=== PATIENT | male | born 1995 | race Caucasian/White ===

== ENCOUNTER 2019-05-06 18:01 | Outpatient (CLI) | payer BC ==
[2019-05-06] MEDS ORDERED: GADOBUTROL 10 MMOL/10 ML VIAL ONE (18:38)
[2019-05-06] MEDS ORDERED: GADOBUTROL 10 MMOL/10 ML VIAL IVP ONE (18:49)
--- NOTE | 2019-05-07 16:20 | MRI Report ---
Reason: SCROTAL PAIN, MIRGAINE HEADACHE W/AURA MENINGIOMA Procedure Date: 05/06/2019 Accession Number: [id number] / [id number] Procedure: MRI - Brain W/WO CPT Code: FULL RESULT: EXAM: MRI BRAIN WITHOUT AND WITH CONTRAST EXAM DATE: 05/06/2019 07:08 PM. CLINICAL HISTORY: 24-year-old male. SCROTAL PAIN, MIGRAINE HEADACHE W/AURA. MENINGIOMA. COMPARISON: None. TECHNIQUE: Multiplanar, multisequence T1-weighted and fluid-sensitive MR sequences of the brain were performed before and after administration of intravenous contrast. Sequences optimized for routine evaluation. Other: None. IV Contrast: 10 ML Gadavist. FINDINGS: Brain Volume: Normal for age. Parenchyma: No acute hemorrhage, mass, or infarct. No white matter lesions identified. No abnormal enhancement. No parenchymal foci of susceptibility artifact. Ventricles/Cisterns: No hydrocephalus. There is a CSF signal intensity lesion within the medial right temporal region measuring maximally approximately 1.4 x 1.3 x 1.8 cm (for example series 901 image 14), nonspecific, may represent a choroid fissure cyst. There is a 12 mm cystic appearing pineal region lesion (for example series 801 image 12) Orbits: Symmetric and unremarkable. Sella Turcica: The pituitary gland, cavernous sinuses, suprasellar cistern and optic chiasm are unremarkable. IAC: Symmetric and unremarkable. Vasculature: Normal signal flow void is seen in the major arterial structures at the skull base. The dural sinuses are patent and enhance normally. Sinuses: Mucous retention cyst right maxillary sinus. The remaining paranasal sinuses are clear. Bones: No focal pathologic appearing marrow signal changes. Other: None. IMPRESSION: 1. No abnormal intracranial enhancement. No obvious MRI evidence of a meningioma. Is there a prior study demonstrating the meningioma? 2. No MRI evidence of acute intracranial abnormality. Specifically, no evidence of acute or subacute infarct, acute intracranial hemorrhage, parenchymal mass, midline shift, or hydrocephalus. No white matter lesions. 3. There is a CSF signal intensity lesion within the medial right temporal region measuring maximally approximately 1.4 x 1.3 x 1.8 cm (for example series 901 image 14), nonspecific, may represent a choroid fissure cyst. 4. There is a 12 mm cystic appearing pineal region lesion (for example series 801 image 12). 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 RADIA
== END 2019-05-06 18:02 | disposition home or self-care (01) ==
LOC: DI 18:01
PROVIDERS: ATTEND Physician Assistant
DX: G93.9 Disorder of brain, unspecified (principal)
CPT/HCPCS: 70553; A9585

== ENCOUNTER 2019-05-14 19:10 | Outpatient (CLI) | payer BC ==
--- NOTE | 2019-05-15 11:07 | Ultrasound Report ---
Reason: SCROTAL PAIN, MIRGAINE HEADACHE W/AURA MENINGIOMA Procedure Date: 05/14/2019 Accession Number: [id number] / [id number] Procedure: US - Testicle CPT Code: FULL RESULT: EXAM: SCROTAL ULTRASOUND EXAM DATE: 05/14/2019 07:50 PM. CLINICAL HISTORY: SCROTAL PAIN, MIRGAINE HEADACHE W/AURA MENINGIOMA. COMPARISON: None. TECHNIQUE: Real-time scanning was performed with static images obtained. Color-flow images were utilized. FINDINGS: Right: Testis: 5.5 x 2.7 x 2.6 cm. Normal size and echotexture. No mass, calcification, or abnormal blood flow. Epididymis: 1.1 x 1.1 x 1.2 cm. Normal size and echotexture. No mass or abnormal blood flow. Hydrocele: None. Varicocele: None. Left: Testis: 5.2 x 2.5 x 3 cm. Normal size and echotexture. No mass, calcification, or abnormal blood flow. Epididymis: 1 x 0.8 x 0.9 cm. Normal size and echotexture. No mass or abnormal blood flow. Hydrocele: None. Varicocele: None. IMPRESSION: Normal scrotal ultrasound. RADIA
== END 2019-05-14 19:11 | disposition home or self-care (01) ==
LOC: DI 19:10
PROVIDERS: ATTEND Physician Assistant
DX: N50.82 Scrotal pain (principal); N50.819 Testicular pain, unspecified
CPT/HCPCS: 76870

== ENCOUNTER 2019-06-05 08:53 | Emergency (ER) | payer BC ==
[2019-06-05] MEDS ORDERED: diltiaZEM INJ 5 MG/ML VIAL IVP STA ×2 (09:31→11:23)
[2019-06-05 09:32] LABS: CALCIUM 9.2 mg/dL (8.5-10.3); CREATININE 0.9 mg/dL (0.6-1.2); MAGNESIUM 1.9 mg/dL (1.7-2.8)
--- NOTE | 2019-06-05 09:45 | XRAY Report ---
Reason: chest pain Procedure Date: 06/05/2019 Accession Number: [id number] / [id number] Procedure: XR - Chest 1 View X-Ray CPT Code: 83582 FULL RESULT: EXAM: CHEST RADIOGRAPHY EXAM DATE: 06/05/2019 09:21 AM. CLINICAL HISTORY: Chest pain. COMPARISON: None. TECHNIQUE: 1 view. FINDINGS: Lungs/Pleura: No focal opacities evident. No pleural effusion. No pneumothorax. Mediastinum: Within exam limitations, the cardiomediastinal contour is normal. Other: None. IMPRESSION: Normal single view chest. RADIA
--- NOTE | 2019-06-05 09:47 | ED Physician Documentation ---
PD HPI DYSPNEA - Stated complaint Stated Complaint: SOA - Chief complaint Chief Complaint: Cardiac - History obtained from History obtained from: Patient - History of Present Illness Timing - onset: How many hours ago (2) Timing - onset during: Rest (when he woke up) Timing - duration: Hours Timing - details: Abrupt onset Severity Comments: moderate Inciting event(s): Other (none, patient feels palpitations and sob) Improved by: Other (nothing) Worsened by: Other (nothing) Associated symptoms: Palpitations. No: Fever, Cough, Hemoptysis, Wheezing, Chest pain / discomfort, Diaphoresis, Bilateral edema, Unilateral edema, Anxiety Similar symptoms before: Diagnosis (SVT, states he had a prior hx of suspected SVT but no one was ever able to catch it on an ekg or monitor.) Recently seen: Not recently seen - Treatment prior to arrival Treatment prior to arrival: attempted vagal maneuevers without success Review of Systems Ten Systems: 10 systems reviewed and negative Constitutional: denies: Fever Cardiac: reports: Palpitations. denies: Chest pain / pressure, Pedal edema, Calf pain Respiratory: reports: Dyspnea. denies: Cough, Hemoptysis, Wheezing GI: denies: Abdominal Pain, Nausea, Vomiting Skin: reports: Reviewed and negative Musculoskeletal: denies: Extremity pain, Extremity swelling, Joint swelling Neurologic: reports: Reviewed and negative Psychiatric: reports: Reviewed and negative. denies: Anxiety Immunocompromised: reports: Reviewed and negative PD PAST MEDICAL HISTORY - Past Medical History Past Medical History: Yes Cardiovascular: Arrhythmia (thinks it was SVT) - Past Surgical History Past Surgical History: No - Present Medications Home Medications: Ambulatory Orders Medication Instructions Recorded Confirmed Aspirin [Adult Aspirin Regimen] 81 mg PO DAILY #30 tablet.dr 06/05/19 Diltiazem HCl [Cardizem LA] 120 mg PO DAILY #20 tab.er.24h 06/05/19 - Allergies Allergies/Adverse Reactions: Allergies Allergy/AdvReac Type Severity Reaction Status Date / Time amoxicillin Allergy Rash Verified 06/05/19 09:00 Penicillins Allergy Rash Verified 06/05/19 08:59 - Social History Does the pt smoke?: Yes Smoking Status: Current some day smoker Does the pt drink ETOH?: Yes Does the pt have substance abuse?: No PD ED PE NORMAL - Vitals Vital signs reviewed: Yes - General General: Alert and oriented X 3, No acute distress, Well developed/nourished - HEENT HEENT: Atraumatic, Pharynx benign - Neck Neck: Supple, no meningeal sign, No JVD - Respiratory Respiratory: No respiratory distress, Clear bilaterally - Abdomen Abdomen: Soft, Non tender, Non distended - Male Male : Deferred - Rectal Rectal: Deferred - Derm Derm: Normal color, Warm and dry, No rash - Extremities Extremities: No tenderness to palpate, No edema, No calf tenderness / cord - Neuro Neuro: Alert and oriented X 3 Eye Opening: Spontaneous Motor: Obeys Commands Verbal: Oriented GCS Score: 15 - Psych Psych: Normal mood, Normal affect PD ED PE EXPANDED - Cardiac Cardiac: Tachy, Irregularly irregular, Radial strong equal. No: Murmur Present, JVD present, Rub Results - Vitals Vitals: Oxygen O2 Source Room air - EKG (time done) 09:05 Rate: Rate (enter#) (119) Rhythm: Atrial fibrillation (with RVR ) [place]: Normal Intervals: QRS normal Ischemia: Normal ST segments Other comments: Other comments (no STEMI) Computer interpretation: Agree with computer - Tele (time rhythm occurred) 09:20 Telemetry / rhythm strip: Rate (155), Atrial fibrillation (with RVR) - Labs Labs: Laboratory Tests 06/05/19 06/05/19 06/05/19 09:01 09:01 09:01 Sodium 142 Potassium 4.2 Chloride 105 Carbon Dioxide 29 Anion Gap 8.0 BUN 16 Creatinine 0.9 Estimated GFR (MDRD) 103 Glucose 104 H Calcium 9.2 Magnesium 1.9 Troponin I High Sens 2.3 TSH 0.88 - Rads (name of study) CXR Radiology: Final report received, EMP read contemporaneously, See rad report PD MEDICAL DECISION MAKING - ED course Complexity details: reviewed results, re-evaluated patient, considered differential, d/w patient, d/w family ED course: ddx - afib with rvr, PE, SVT, electrolyte abnormality, ACS 24 y/o M with hx of arrythmia previously with unknown diagnosis. He is asymptomatic except for tachycardia. Today presented and found to be in AFib with RVR. His vitals aside from tachycardia are stable. He has a normal CXR, labs are normal including electrolytes and troponin. He responded to 25mg of diltiazem but then had a second episode of RVR which responded to 35mg of diltiazem. Pt then given an oral dose and maintained in controlled Afib. His [id number] score was a 0 and thus has no indication for anticoagulation. Will initiate pt on outpt cardizem with outpt f/u. Advised him to avoid stimulants in the meantime and given return precautions in case symptoms recur or worsen. - Critical Care Time(min): 30 Comments: management of Afib with RVR, repeat dosing of cardizem, evaluation for causes of Afib. Time Includes: Direct patient care, Review records, Reassess patient Data interpretation: Labs, CXR Procedures excluded from critical care time: EKG Departure - Departure Disposition: Home, Self Care Clinical Impression: Atrial fibrillation with controlled ventricular rate Condition: Stable Instructions: Atrial Fibrillation Dc Follow-Up: Alesia Clinton PA [Primary Care Provider] - Within 1 week (to discuss symptoms, ED visit and arrange cardiology followup) Prescriptions: Aspirin [Adult Aspirin Regimen] 81 mg PO DAILY #30 tablet. Diltiazem HCl [Cardizem LA] 120 mg PO DAILY #20 tab.er.24h Comments: Your labs today were normal. Your EKGs showed rapid atrial fibrillation which improved. Your risk factors for stroke in Afib are very low. Your risk score called the CHADSVASC2 is a 0 which means you do not require anticoagulation. However it is safe to take a baby aspirin. Take the prescribed cardizem (diltiazem) daily at least until you follow up with your PCP to further assess the status of your afib. If your heart rate becomes very rapid again you may need to return to the ED for repeat dosing via an IV and admission. Discharge Date/Time: 06/05/19 13:01
[2019-06-05] MEDS ORDERED: ASPIRIN EC 81 MG TABLET PO STA (10:03)
[2019-06-05] MEDS ORDERED: diltiaZEM 30 MG TABLET PO STA (10:16)
[2019-06-05] MEDS ORDERED: METOPROLOL 5 MG/5 ML VIAL IVP STA (11:21)
[2019-06-05] MEDS ORDERED: SODIUM CHLORIDE 0.9% 1,000 ML IV ONE (11:30)
[2019-06-05 12:15] VITALS: BP 106/72
== END 2019-06-05 13:01 | disposition home or self-care (01) ==
LOC: ED 08:53
DX: I48.91 Unspecified atrial fibrillation (principal); F17.200 Nicotine dependence, unspecified, uncomplicated; Z79.82 Long term (current) use of aspirin
CPT/HCPCS: 36415; 71045; 80048; 83735; 84443; 84484; 93005; 96361; 96374; 96376; 99284; 99291; A9270

== ENCOUNTER 2019-08-21 14:57 | Outpatient (CLI) | payer BC | END 2019-08-21 14:58 | disposition home or self-care (01) | LOC: LAB 14:57 | PROVIDERS: ATTEND Internal Medicine Cardiovascular Disease | DX: I48.0 Paroxysmal atrial fibrillation (principal) | CPT/HCPCS: 36415; 84443 ==

== ENCOUNTER 2019-08-25 09:07 | Outpatient (CLI) | payer BC ==
[2019-08-25 09:55] VITALS: BP 127/84
--- NOTE | 2019-08-25 09:55 | SLEEP CARE CONSULTATION ---
Information from patient questionnaire entered by Doris Esquivel. I have reviewed and concur with the information entered by Doris Esquivel. This document represents the service I personally performed and the decisions made by me, Rangel Mclaughlin MD, [facility]. History of Present Illness Reason for Visit: New patient Chief Complaint: reports: Other (AFIB) Duration of Symptoms: 2 months Usual bedtime: 2200 Time it takes to fall asleep: 30+ minutes Snores at night: Yes (sometimes) Observed to quit breathing while asleep: No Sleeps alone due to snoring: No Number of times waking at night: 3 Reasons for waking at night: reports: Other (thirsty) Toss, Turn, or Twitch while sleeping: Yes Recalls having dreams: Yes Usually gets out of bed at: 0630 Feels refreshed in the morning: No Morning headache: No Sleepy or fatigued during the day: Yes Ever fallen asleep while driving: No Takes day naps: No Dreams during day naps: No Prior sleep studies: No Additional HPI information: I had the pleasure of seeing Mr. Calvillo today regarding the possibility of him having a sleep disorder. As you know, he is a 24 year old gentleman who complains of headache and atrial fibrillation for 5 days. The patient tells me that he normally goes to bed around 10 pm, and it takes him approximately 30+ minutes to fall asleep. He takes amitriptylene at bedtime. He has not been told that he snores loudly or irregularly at night. He has never been observed to stop breathing in his sleep. However, he sleeps alone now. He can recall waking up on the average of 1 - 3 times during the night. Most of the time he wakes up because of thirst. He has never awakened because of his own snoring, choking, or having to gasp for air. There is a lot of tossing and turning in his sleep. No somniloquy (sleep talking) or somnambulism (sleep walking). Generally he can recall having dreams. In the morning he usually gets up out of the bed around 6:30 a.m. not feeling refreshed nor rested. He usually does have a morning headache. During the day he complains of feeling sleepy and fatigued. His score on [place] Sleepiness Scale is 6 out of 24. He has never fallen asleep while driving nor has had any accident due to sleepiness. He usually does not take naps during the day. Upon falling asleep during the day he denies having vivid dreams. He has never had sleep paralysis, but possibly experienced cataplexy. No symptoms to suggest restless leg syndrome. He reports having impaired concentration during the day. 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 Patient is Legally and lives in [place]. Have you smoked in the past 12 months: Yes Cigarettes per day (20/pack): 4 Years of smokin Smoking Pack Years: 1.2 Alcohol use: Yes Alcohol amount and frequency: 4/week Caffeine use: Yes Caffeine amount and frequency: 8-30 cups coffee/day Family History Family history of sleep disordered breathing: Yes Family Hx Sleep Apnea: Father: Snoring, Grandparent: Snoring Allergies and Home Medications Drug allergies reviewed: Yes Home medication list reviewed: Yes Allergy and home medication list: Meds: metoprolol, amitriptylene, ibuprofen Allergies: penicillin and amoxicillin Review of Systems Weight gain over past 5 years: 50 Cardiovascular: reports: palpitations, chest pain, irregular heart rate or pulse Respiratory: reports: shortness of breath Gastrointestinal: reports: heartburn, nausea Neurological: reports: headaches Psychiatric: reports: anxiety, depression Ear/Nose/Throat: reports: wisdom teeth removed Endocrine: reports: excessive thirst Musculoskeletal: reports: joint pain, neck pain, back pain Immunologic: denies: sneezing, rash, itching, allergies to food or environment, other Physical Exam Vital signs obtained and entered by: Dr. Mclaughlin Blood Pressure: 127/84 Cuff size: regular Heart Rate: 77 O2 Saturation: 96 Height: 6 ft Weight: 230 lb Body Mass Index: 31.1 BMI Classification: Obesity Class 1 Neck circumference: 17 Mood/affect: normal HEENT: No craniofacial malformation Nostrils: patent to airflow Turbinates: normal Septum: midline Mouth and throat: narrow oropharynx Soft palate: long Hard palate: normal Uvula: normal Uvula visualization: 50% Mallampati Class II Tongue: normal in size Tonsils: small Chin and jaw: normal size and position Neck: normal w/o lymphadenopathy or thyromegaly Heart: regular rate and rhythm Lungs: clear bilaterally Abdomen: soft, non-tender Extremities: no edema or clubbing Neurologic: intact, no focal deficits Impression and Plan IMPRESSION: 1. Suspected Obstructive Sleep Apnea-Hypopnea Syndrome, as suggested by history of snoring, unrefreshed sleep, morning headache, cognitive impairment, and daytime hypersomnolence. Narrow oropharynx and obesity are common predisposing factors for obstructive sleep apnea-hypopnea syndrome. Obstructive sleep apnea, left untreated, can increase the risk of recurrent paroxysmal atrial fibrillation. Pathophysiology of sleep-disordered breathing was discussed. I recommend proceeding to polysomnography to confirm the diagnosis and to assess severity. If he has significant sleep disordered breathing, a manual CPAP titration study will also be performed to find the optimal treatment pressure. I informed the patient of what the sleep studies involve and after some discussion, he agreed to proceed. Home sleep apnea test (HSAT) is inappropriate because of the history of paroxysmal atrial fibrillation. Plan: 1. Schedule an in-laboratory polysomnography. 2. Avoid long distance driving or when feeling sleepy. 3. Avoid alcohol, sedative and muscle relaxant around bedtime. 4. Attempt to lose weight. 5. Return in 1 to 2 weeks after the study to discuss results and initiate therapy. I spent 100% of this visit face to face with the patient with greater than 50% of this was spent time counseling the patient and coordination of care.
== END 2019-08-25 09:08 | disposition home or self-care (01) ==
LOC: SC 09:07
PROVIDERS: ATTEND Internal Medicine Pulmonary Disease
DX: G47.10 Hypersomnia, unspecified (principal); G47.8 Other sleep disorders; R51 Headache; R41.89 Other symptoms and signs involving cognitive functions and awareness; R06.83 Snoring; E66.9 Obesity, unspecified; Z68.31 Body mass index [BMI] 31.0-31.9, adult; F17.210 Nicotine dependence, cigarettes, uncomplicated
CPT/HCPCS: 99203; 99212

== ENCOUNTER 2019-10-12 14:17 | Outpatient (CLI) | payer BC ==
--- NOTE | 2019-10-12 15:21 | SLEEP CARE CONSULTATION ---
Information from patient questionnaire entered by Doris Esquivel. I have reviewed and concur with the information entered by Doris Esquivel. This document represents the service I personally performed and the decisions made by me, Rangel Mclaughlin MD, [facility]. History of Present Illness Initial [place] Sleepiness Scale score: 6 Current [place] Sleepiness Scale score: 3 Additional HPI information: HPI: Mr. Calvillo returned for follow up of the home sleep apnea test (HSAT) he had on 09/07/2019. The test showed no significant sleep disordered breathing. The AHI 4.4 (supine AHI was 5.1 and non-supine, 2.9). There was minimal hypoxemia. The quality of the test was good. The patient was informed of these findings. I explained to him that the HST was equivocal. Allergies and Home Medications Drug allergies reviewed: Yes Home medication list reviewed: Yes Review of Systems Review of systems same as previous: Yes Physical Exam Height: 6 ft Weight: 228 lb 6.4 oz Weight change since last visit: -1.4 Body Mass Index: 30.9 BMI Classification: Obese Impression and Plan IMPRESSION: 1. Suspected Obstructive Sleep Apnea-Hypopnea Syndrome, with equivocal home sleep apnea test (HSAT). Therefore, we should proceed to an in-laboratory polysomnography because he does have several symptoms of the sleep-disordered breathing and he also has atrial fibrillation. PLAN: 1. Schedule an in-laboratory polysomnography. 2. Return for follow up after the sleep study. I spent 100% of this visit face to face with the patient with greater than 50% of this was spent time counseling the patient and coordination of care.
== END 2019-10-12 14:18 | disposition home or self-care (01) ==
LOC: SC 14:17
PROVIDERS: ATTEND Internal Medicine Pulmonary Disease
DX: G47.10 Hypersomnia, unspecified (principal); R06.83 Snoring; G47.63 Sleep related bruxism; I48.91 Unspecified atrial fibrillation; E66.9 Obesity, unspecified; Z68.30 Body mass index [BMI] 30.0-30.9, adult
CPT/HCPCS: 99212; 99213

== ENCOUNTER 2020-03-28 11:14 | Emergency (ER) | payer BC, OTHER ==
--- NOTE | 2020-03-28 11:43 | ED Physician Documentation ---
History of Present Illness - Stated complaint Stated Complaint: ABD PAIN - Chief complaint Chief Complaint: Abd Pain - History obtained from History obtained from: Patient - History of Present Illness Timing: How many weeks ago (several weeks) Pain level max: 5 Pain level now: 4 - Additonal information Additional information: R inguinal pain. has had a hernia. now increasing pain. Nothing makes it better or worse. No vomiting. No diarrhea. No constipation. Review of Systems Constitutional: denies: Fever, Chills GI: denies: Vomiting, Diarrhea Skin: denies: Rash Musculoskeletal: denies: Neck pain, Back pain PD PAST MEDICAL HISTORY - Past Medical History Cardiovascular: Arrhythmia (thinks it was SVT) - Past Surgical History Past Surgical History: No - Present Medications Home Medications: Ambulatory Orders Medication Instructions Recorded Confirmed Meloxicam [Mobic] 15 mg PO DAILY PRN #20 tablet 03/28/20 Metoprolol Tartrate 25 mg PO DAILY 03/28/20 03/28/20 - Allergies Allergies/Adverse Reactions: Allergies Allergy/AdvReac Type Severity Reaction Status Date / Time acetaminophen [From Percocet] Allergy Unknown Verified 03/28/20 11:22 amoxicillin Allergy Rash Verified 03/28/20 11:22 oxycodone [From Percocet] Allergy Unknown Verified 03/28/20 11:22 Penicillins Allergy Rash Verified 03/28/20 11:22 - Social History Does the pt smoke?: Yes Smoking Status: Current some day smoker Does the pt drink ETOH?: Yes Does the pt have substance abuse?: No PD ED PE NORMAL - Vitals Vital signs reviewed: Yes - General General: Alert and oriented X 3, No acute distress, Well developed/nourished - HEENT HEENT: Moist mucous membranes - Abdomen Abdomen: Soft, Non tender, Non distended, Other (Mild right inguinal hernia, reducible. No signs of ischemia.) - Derm Derm: Warm and dry - Neuro Neuro: Alert and oriented X 3 - Psych Psych: Normal mood, Normal affect Results - Vitals Vitals: Vital Signs - 24 hr 03/28/20 03/28/20 11:18 12:04 Temperature 36.8 C Heart Rate 77 73 Respiratory 16 18 Rate Blood Pressure 154/101 H 134/86 H O2 Saturation 97 98 Oxygen O2 Source Room air PD MEDICAL DECISION MAKING - ED course Complexity details: considered differential, d/w patient ED course: Patient with a right inguinal hernia. Discussed the case with Dr. Lawrence, surgery who will see the patient in the office tomorrow or the next day. Patient can utilize anti-inflammatories for pain. No vomiting. No signs of incarceration. Patient counseled regarding signs and symptoms for which I believe and urgent re-evaluation would be necessary. Patient with good understanding of and agreement to plan and is comfortable going home at this time This document was made in part using voice recognition software. While efforts are made to proofread this document, sound alike and grammatical errors may occur. Departure - Departure Disposition: , Self Care Clinical Impression: Inguinal hernia Qualifiers: Obstruction and gangrene presence: without obstruction or gangrene Laterality: unilateral Recurrence: non-recurrent Qualified Code(s): K40.90 - Unilateral inguinal hernia, without obstruction or gangrene, not specified as recurrent Condition: Good Instructions: ED Hernia Inguinal Follow-Up: Alesia Clinton PA [Primary Care Provider] - Mathew Lawrence MD [Provider Admit Priv/Credential] - Prescriptions: Meloxicam [Mobic] 15 mg PO DAILY PRN #20 tablet PRN Reason: pain Comments: I spoke with Dr. Lawrence today, she will see you in clinic tomorrow or Saturday. To call the clinic for your appointment time. Return if you worsen. Discharge Date/Time: 03/28/20 12:14
[2020-03-28] MEDS ORDERED: MELOXICAM 7.5 MG TABLET PO STA (11:59)
[2020-03-28 12:05] VITALS: BP 134/86
== END 2020-03-28 12:14 | disposition home or self-care (01) ==
LOC: ED 11:14
DX: K40.90 Unilateral inguinal hernia, without obstruction or gangrene, not specified as recurrent (principal); F17.200 Nicotine dependence, unspecified, uncomplicated
CPT/HCPCS: 36415; 99282; 99284; A9270

== ENCOUNTER 2020-04-07 10:50 | Outpatient (CLI) | payer BC | END 2020-04-07 10:51 | disposition home or self-care (01) | LOC: COV 10:50 | PROVIDERS: ATTEND Surgery | DX: Z01.818 Encounter for other preprocedural examination (principal); K40.90 Unilateral inguinal hernia, without obstruction or gangrene, not specified as recurrent; Z20.828 Contact with and (suspected) exposure to other viral communicable diseases ==

== ENCOUNTER 2020-07-12 14:08 | Outpatient (CLI) | payer BC ==
[2020-07-12 14:21] LABS: MUDS CUTOFF CONCENTRATIONS CUTOFF CONC BELOW:
[2020-07-12 16:07] LABS: AMPHETAMINE SCREEN,URINE NEGATIVE (NEGATIVE); BENZODIAZEPINES SCREEN, URINE NEGATIVE (NEGATIVE); COCAINE SCREEN URINE NEGATIVE (NEGATIVE); METHADONE SCREEN, URINE NEGATIVE (NEGATIVE); METHAMPHETAMINES SCREEN, URINE NEGATIVE (NEGATIVE); OPIATE SCREEN, URINE NEGATIVE (NEGATIVE); OXYCODONE SCREEN, URINE NEGATIVE (NEGATIVE); PROPOXYPHENE SCREEN, URINE NEGATIVE (NEGATIVE); TRICYCLIC ANTIDEPRESSANT,URINE NEGATIVE (NEGATIVE)
== END 2020-07-12 14:09 | disposition home or self-care (01) ==
LOC: LAB 14:08
PROVIDERS: ATTEND Psychiatry & Neurology Psychiatry
DX: F33.9 Major depressive disorder, recurrent, unspecified (principal); F41.1 Generalized anxiety disorder; F43.10 Post-traumatic stress disorder, unspecified; F90.9 Attention-deficit hyperactivity disorder, unspecified type
CPT/HCPCS: 80306

== ENCOUNTER 2021-01-11 07:53 | Outpatient (CLI) | payer BC ==
[2021-01-11 08:29] LABS: BASOPHILS % (AUTO) 0.5 %; EOSINOPHILS # (AUTO) 0.3 10^3/uL (0.0-0.7); EOSINOPHILS % (AUTO) 3.9 %; HCT - HEMATOCRIT 49.5 % (42.0-52.0); HGB - HEMOGLOBIN 16.7 g/dL (14.0-18.0); LYMPHOCYTES # (AUTO) 2.2 10^3/uL (1.5-3.5); LYMPHOCYTES % (AUTO) 29.4 %; MEAN CORPUSCULAR HEMOGLOBIN 30.8 pg (27.0-31.0); MEAN CORPUSCULAR HGB CONC 33.7 g/dL (32.0-36.0); MEAN CORPUSCULAR VOLUME 91.3 fL (80.0-94.0); MEAN PLATELET VOLUME 9.5 fL (7.4-11.4); MONOCYTES # (AUTO) 0.6 10^3/uL (0.0-1.0); MONOCYTES % (AUTO) 7.7 %; NEUTROPHILS # (AUTO) 4.3 10^3/uL (1.5-6.6); NEUTROPHILS % (AUTO) 58.4 %; PLT - PLATELET COUNT 201 10^3/uL (130-450); RED BLOOD COUNT 5.42 10^6/uL (4.70-6.10); RED CELL DISTRIBUTION WIDTH 12.1 % (12.0-15.0); WHITE BLOOD COUNT 7.4 x10^3/uL (4.8-10.8)
[2021-01-11 08:42] LABS: ALBUMIN 4.4 g/dL (3.2-5.5); ALBUMIN/GLOBULIN RATIO 1.5 (1.0-2.2); BILIRUBIN,TOTAL 1.1 mg/dL (0.2-1.0); CALCIUM 9.3 mg/dL (8.5-10.3); POTASSIUM 4.4 mmol/L (3.5-5.0); TOTAL PROTEIN 7.4 g/dL (6.7-8.2)
[2021-01-11 08:59] LABS: THYROID STIMULATING HORMONE 1.15 uIU/mL (0.34-5.60)
== END 2021-01-11 07:54 | disposition home or self-care (01) ==
LOC: LAB 07:53
PROVIDERS: ATTEND Registered Nurse
DX: I48.91 Unspecified atrial fibrillation (principal); Z76.0 Encounter for issue of repeat prescription; F17.200 Nicotine dependence, unspecified, uncomplicated
CPT/HCPCS: 36415; 80053; 84443; 85025